=== PATIENT | female | born 1970 | race Caucasian/White ===

== ENCOUNTER 2024-03-05 11:56 | Emergency (ER) | payer MEDICAID ==
[~2024-03-05] VITALS: Ht 152.4 cm; Wt 50.0 kg
[2024-03-05 11:58] VITALS: BP 99/55; PULSE 84; RESP 16; O2SAT 98
[2024-03-05 12:38] VITALS: TEMP 100.1
[2024-03-05] MEDS: LACTATED RINGERS 1,000 ML IV SCH (12:38)
[2024-03-05] MEDS: ACETAMINOPHEN 325MG TABLET PO ONE (12:38)
[2024-03-05 12:44] LABS: HEMATOCRIT. 39.2 % (36.0-48.0); HEMOGLOBIN. 13.6 g/dL (12.0-16.0); MEAN CORPUSCULAR HEMOGLOBIN 34.3 pg (28.0-32.0); MEAN CORPUSCULAR HGB CONC 34.8 g/dL (31.0-37.0); MEAN CORPUSCULAR VOLUME 98.6 fL (81.0-99.0); MEAN PLATELET VOLUME 7.4 fl (7.4-10.4); PLATELET 214 x1000/uL (130-400); RED BLOOD CELL COUNT 3.98 mill/uL (4.2-5.4); RED CELL DISTRIBUTION WIDTH 11.7 % (11.6-14.6); WHITE BLOOD COUNT 7.9 x1000/uL (4.5-11.0)
[2024-03-05 12:49] LABS: DIFFERENTIAL COMMENT 1
[2024-03-05 12:53] LABS: CHLORIDE 104 mEq/L (98-107); POTASSIUM 3.6 mEq/L (3.5-5.1); SODIUM 135 mEq/L (136-145)
[2024-03-05 12:54] LABS: CARBON DIOXIDE 23 mEq/L (21-32)
[2024-03-05 12:57] LABS: HCG SCREEN NEGATIVE
[2024-03-05 12:59] LABS: CREATININE 0.7 mg/dL (0.6-1.0); GLUCOSE 159 mg/dL (70-105); UREA NITROGEN BLOOD 12 mg/dL (9-23)
[2024-03-05 13:01] LABS: ALANINE AMINOTRANSFERASE 20 IU/L (10-49); ALBUMIN 4.5 g/dL (3.2-4.8); ASPARTATE AMINOTRANSFERASE 27 IU/L (<34); BILIRUBIN TOTAL 0.5 mg/dL (0.1-1.0); TROPONIN I HIGH SENSITIVITY < 4 ng/L (3.0-34)
[2024-03-05 13:02] LABS: PROTEIN TOTAL 6.6 g/dL (6.0-8.3)
[2024-03-05 13:42] LABS: PLATELET ESTIMATE NORMAL
== END 2024-03-05 14:15 | disposition home or self-care (01) ==
LOC: ER 11:56
DX: R55 Syncope and collapse (principal); J02.9 Acute pharyngitis, unspecified
CPT/HCPCS: 80053; 84703; 85025; 84484; 36415; 71045; 93005; 99285; Z7610